=== PATIENT | female | born 1975 | race American Indian/Alaskan Native ===

== ENCOUNTER 2017-03-17 23:42 | Emergency (ER) | payer SELFPAY ==
[2017-03-18 01:02] LABS: Basophils % (Auto) 0.6 % (0.0-1.8); Eosinophils % (Auto) 7.9 % (0.0-4.3); Hematocrit 31.9 % (30.3-42.9); Hemoglobin 10.4 gm/dl (10.1-14.3); Mean Corpuscular HGB Conc 33 % (30-34); Mean Corpuscular Hemoglobin 28 pg (28-32); Mean Corpuscular Volume 87 fl (79-97); Platelet Count 315 K/mm3 (140-440); Red Blood Count 3.68 M/mm3 (3.65-5.03); Red Cell Distribution Width 14.5 % (13.2-15.2); White Blood Count 8.1 K/mm3 (4.5-11.0)
[2017-03-18 01:05] LABS: Alanine Aminotransferase 14 units/L (7-56); Albumin 3.4 g/dL (3.9-5); Albumin/Globulin Ratio 0.8 %; Alkaline Phosphatase 84 units/L (35-129); Anion Gap 16 mmol/L; BUN/Creatinine Ratio 12.72; Blood Urea Nitrogen 14 mg/dL (7-17); Calcium 8.5 mg/dL (8.4-10.2); Carbon Dioxide 26 mmol/L (22-30); Chloride 102.1 mmol/L (98-107); Glucose 81 mg/dL (65-100); Lipase 65 units/L (13-60); Potassium 3.8 mmol/L (3.6-5.0); Sodium 140 mmol/L (137-145); Total Protein 7.6 g/dL (6.3-8.2)
[2017-03-18] MEDS ORDERED: PEPCID PO ONE (04:41)
[2017-03-18] MEDS ORDERED: ZOFRAN ODT PO ONE (04:41)
--- NOTE | 2017-03-18 04:41 | Emergency Department Report ---
Addendum entered and electronically signed by GWENDOLYN TRIVEDI PA 03/18/17 07 :41: Original Note: ED N/V/D HPI - General Chief complaint: Nausea/Vomiting/Diarrhea Stated complaint: VOMITING Time Seen by Provider: 03/18/17 04:40 Source: patient Mode of arrival: Ambulatory Limitations: No Limitations - History of Present Illness Initial comments: 41-year-old female past medical history cervical cancer presents complaining of 3 days of intermittent nausea and vomiting. Patient denies any fevers chills no dysuria and no increased urinary frequency. Patient is awake alert and oriented 3 not in acute distress during my exam. States she has been able to maintain fluids but states that eating solids makes her nauseous. Denies any direct abdominal pain. No recent travel has not eaten anything out of the ordinary. Patient also incidentally states that she has noticed 1 week of left calf swelling. Denies any bloody diarrhea MD complaint: nausea, vomiting Onset/Timin -: days(s) Description of Vomiting: food contents Associated Abdominal Pain: No Improves with: vomiting Worsens with: eating Associated Symptoms: other (left calf swelling) - Related Data Allergies Allergy/AdvReac Type Severity Reaction Status Date / Time No Known Allergies Allergy Verified 03/18/17 00:05 ED Review of Systems ROS: Stated complaint: VOMITING Other details as noted in HPI Constitutional: denies: chills, fever Eyes: denies: eye pain, eye discharge, vision change ENT: denies: ear pain, throat pain Respiratory: denies: cough, shortness of breath, wheezing Cardiovascular: denies: chest pain, palpitations Endocrine: no symptoms reported Gastrointestinal: nausea. denies: abdominal pain, diarrhea Genitourinary: denies: urgency, dysuria, discharge Musculoskeletal: as per HPI (left calf swelling). denies: back pain, joint swelling, arthralgia Skin: denies: rash, lesions Neurological: denies: headache, weakness, paresthesias Psychiatric: denies: anxiety, depression Hematological/Lymphatic: denies: easy bleeding, easy bruising ED Past Medical Hx - Past Medical History Previous Medical History?: Yes Additional medical history: cervical ca - Surgical History Past Surgical History?: Yes Additional Surgical History: cervical - Social History Smoking Status: Never Smoker Substance Use Type: None ED Physical Exam - General Limitations: No Limitations General appearance: alert, in no apparent distress - Head Head exam: Present: atraumatic, normocephalic - Eye Eye exam: Present: normal appearance, PERRL, EOMI - ENT ENT exam: Present: mucous membranes moist - Neck Neck exam: Present: normal inspection - Respiratory Respiratory exam: Present: normal lung sounds bilaterally. Absent: respiratory distress - Cardiovascular Cardiovascular Exam: Present: regular rate, normal rhythm. Absent: systolic murmur, diastolic murmur, rubs, gallop - GI/Abdominal GI/Abdominal exam: Present: soft (abdomen soft nontender nondistended no suprapubic pain negative pain at McBurney's negative iliopsoas negative Rovsing' s negative Rojo sign), normal bowel sounds - Extremities Exam Extremities exam: Present: normal inspection, full ROM - Expanded Lower Extremity Exam Left Lower Leg exam: Present: tenderness, swelling (left calf tenderness and swelling ) - Back Exam Back exam: Present: normal inspection - Neurological Exam Neurological exam: Present: alert, oriented X3 - Psychiatric Psychiatric exam: Present: normal affect, normal mood - Skin Skin exam: Present: warm, dry, intact, normal color. Absent: rash ED Course Vital Signs 03/18/17 00:07 Temperature 98.3 F Pulse Rate 98 H Respiratory 20 Rate Blood Pressure 159/108 [Right] O2 Sat by Pulse 97 Oximetry ED Medical Decision Making - Lab Data Result diagrams: 03/18/17 00:20 03/18/17 00:20 - Medical Decision Making A/P: Nausea and vomiting, left lower extremity swelling 1-abdominal labs unremarkable, pending UA 2-pending lower extremity Doppler 3-patient passing by mouth challenged tolerating food and fluids without difficulty and no longer vomiting 4-I signed out patient to DEE Lancaster to reassess and f/u doppler and UA Critical care attestation.: If time is entered above; I have spent that time in minutes in the direct care of this critically ill patient, excluding procedure time. ED Disposition Condition: Stable Referrals: PRIMARY CARE, [Primary Care Provider] - 3-5 Days
[2017-03-18 05:53] LABS: Bacteria,Urine 1+ /HPF (Negative); Bilirubin,Urine NEG (Negative); Blood,Urine NEG (Negative); Ketones,Urine NEG (Negative); Leukocyte Esterase,Urine NEG (Negative); Mucus,Urine FEW /HPF; Nitrite,Urine NEG (Negative); Protein,Urine <15 mg/dL mg/dL (Negative); Urobilinogen,Urine < 2.0 mg/dL (<2.0)
[2017-03-18 08:13] VITALS: BP 125/87
--- NOTE | 2017-03-18 08:40 | Event Note ---
Date: 03/18/17 Patient is a 41-year-old female that was signed off to me by fellow DEE Bustillo. Patient initially here for nausea and vomiting. CBC BMP, cardiac enzymes, urinalysis ordered All laps findings were normal. Except urinalysis. Urinalysis showed +1 bacteria. Ultrasound Doppler of the lower left extremity was ordered due to the swelling. Doppler ultrasound normal no signs of DVT. Discussed this findings the patient. Patient was discharged home with Bactrim DS and Zofran for nausea. Discussed the patient to follow-up with the primary care physician. Vital signs are normal patient is in no acute distress Patient was alert and oriented 3 she understands instructions are given.
--- NOTE | 2017-03-21 07:29 | Emergency Department Report ---
ED N/V/D HPI - General Chief complaint: Nausea/Vomiting/Diarrhea Stated complaint: VOMITING Time Seen by Provider: 03/18/17 04:40 Source: patient Mode of arrival: Ambulatory Limitations: No Limitations - History of Present Illness Initial comments: MY Original note was deleted from [facility] 41-year-old female past medical history cervical cancer presents with complaint of 3-4 days of intermittent nausea and vomiting. Patient denies any abdominal pain denies any diarrhea, fevers, chills, dysuria denies eating or drinking anything out of the ordinary for the last week. Denies any travel outside of the country. Denies any sick contacts at home. Possible slight increased urinary frequency as per patient. Patient is awake alert and oriented 3 not in acute distress states that she last vomited last night. Patient is able to drink water without throwing this up. On exam patient is calm lying down comfortably on bed. Denies any alcohol or drug use. Also incidentally states that she has noticed left calf swelling for 1 week. Denies any direct trauma to the leg or falls. MD complaint: nausea Onset/Timin -: days(s) Description of Vomiting: food contents, watery Associated Abdominal Pain: No Consistency: intermittent Associated Symptoms: denies other symptoms - Related Data Previous Rx's Medication Instructions Recorded Last Taken Type Hydrocortisone 0.5% (Nf) 1 applicatio TP TID #1 tube 03/18/17 Unknown Rx [Hydrocortisone 0.5% OINT] Ondansetron [Zofran Odt] 4 mg PO Q8H #30 tab.rapdis 03/18/17 Unknown Rx Sulfamethoxazole/Trimethoprim 1 tab PO BID #14 tab 03/18/17 Unknown Rx [Bactrim 400-80 mg] Allergies Allergy/AdvReac Type Severity Reaction Status Date / Time No Known Allergies Allergy Verified 03/18/17 00:05 ED Review of Systems ROS: Stated complaint: VOMITING Other details as noted in HPI Constitutional: denies: chills, fever Eyes: denies: eye pain, eye discharge, vision change ENT: denies: ear pain, throat pain Respiratory: denies: cough, shortness of breath, wheezing Cardiovascular: denies: chest pain, palpitations Endocrine: no symptoms reported Gastrointestinal: denies: abdominal pain, nausea, diarrhea Genitourinary: denies: urgency, dysuria, discharge Musculoskeletal: denies: back pain, joint swelling, arthralgia Skin: denies: rash, lesions Neurological: denies: headache, weakness, paresthesias Psychiatric: denies: anxiety, depression Hematological/Lymphatic: denies: easy bleeding, easy bruising ED Past Medical Hx - Past Medical History Previous Medical History?: Yes Additional medical history: cervical ca - Surgical History Past Surgical History?: Yes Additional Surgical History: cervical - Social History Smoking Status: Never Smoker Substance Use Type: None - Medications Home Medications: Home Medications Medication Instructions Recorded Confirmed Last Taken Type Hydrocortisone 0.5% (Nf) 1 applicatio TP TID #1 tube 03/18/17 Unknown Rx [Hydrocortisone 0.5% OINT] Ondansetron [Zofran Odt] 4 mg PO Q8H #30 tab.rapdis 03/18/17 Unknown Rx Sulfamethoxazole/Trimethoprim 1 tab PO BID #14 tab 03/18/17 Unknown Rx [Bactrim 400-80 mg] ED Physical Exam - General Limitations: No Limitations General appearance: alert, in no apparent distress - Head Head exam: Present: atraumatic, normocephalic - Eye Eye exam: Present: normal appearance, PERRL, EOMI - ENT ENT exam: Present: mucous membranes moist - Neck Neck exam: Present: normal inspection - Respiratory Respiratory exam: Present: normal lung sounds bilaterally. Absent: respiratory distress - Cardiovascular Cardiovascular Exam: Present: regular rate, normal rhythm. Absent: systolic murmur, diastolic murmur, rubs, gallop - GI/Abdominal GI/Abdominal exam: Present: soft (abdomen soft nontender nondistended bowel sounds all 4 quadrants no tenderness at McBurney's point negative Rojo sign no iliopsoas or Rovsing sign on clinical exam patient has no CVA or flank tenderness on exam), normal bowel sounds - Extremities Exam Extremities exam: Present: normal inspection - Back Exam Back exam: Present: normal inspection - Neurological Exam Neurological exam: Present: alert, oriented X3, CN II-XII intact, normal gait - Psychiatric Psychiatric exam: Present: normal affect, normal mood - Skin Skin exam: Present: warm, dry, intact, normal color. Absent: rash ED Course Vital Signs 03/18/17 03/18/17 00:07 08:12 Temperature 98.3 F Pulse Rate 98 H 87 Respiratory 20 20 Rate Blood Pressure 159/108 125/87 [Right] O2 Sat by Pulse 97 99 Oximetry ED Medical Decision Making - Lab Data Result diagrams: 03/18/17 00:20 03/18/17 00:20 - Medical Decision Making A/P: nausea/vomiting, possible gastroeneteritis, left LE swelling 1- EKG, blood work, troponin, amylase, lipase, hepatic panel, CBC, BMP unremarkable 2- patient is now tolerating by mouth fluid and food with no difficulty or nausea after 1 dose of by mouth Zofran. Has not vomited in the last 6 hours nor has nausea sensation 3- lower extremity Doppler ordered to rule out DVT. Patient has moderate risk due to history of cervical cancer. 4- pending urinalysis, lab has been received but yet to be resulted by Laboratory' 5- pt signed out to DEE [place] to f/u results of UA and duplex and to continue PO challenge Critical care attestation.: If time is entered above; I have spent that time in minutes in the direct care of this critically ill patient, excluding procedure time. ED Disposition Clinical Impression: Nausea UTI (urinary tract infection) Qualifiers: Urinary tract infection type: acute cystitis Hematuria presence: without hematuria Qualified Code(s): N30.00 - Acute cystitis without hematuria Disposition: - TO HOME OR SELFCARE Is pt being admited?: No Does the pt Need Aspirin: No Condition: Stable Instructions: Urinary Tract Infection in Women (ED), Acute Nausea and Vomiting (ED) Additional Instructions: Follow-up to primary care physician. Take your medication as prescribed. Prescriptions: Hydrocortisone 0.5% (Nf) [Hydrocortisone 0.5% OINT] 1 applicatio TP TID #1 tube Ondansetron [Zofran Odt] 4 mg PO Q8H #30 tab.rapdis Sulfamethoxazole/Trimethoprim [Bactrim 400-80 mg] 1 tab PO BID #14 tab Referrals: [facility] [Outside] - 3-5 Days [facility] [Outside] - 3-5 Days [facility] [Outside] - 3-5 Days [facility] [Outside] - 3-5 Days PRIMARY CARE, [Primary Care Provider] - 3-5 Days ANDRA CHUN MD [Referring] - 3-5 Days Forms: Work/School Release Form(ED)
== END 2017-03-18 09:20 | disposition home or self-care (01) ==
LOC: ED 23:42
DX: R11.2 Nausea with vomiting, unspecified (principal); N30.00 Acute cystitis without hematuria; Z85.41 Personal history of malignant neoplasm of cervix uteri; Z98.890 Other specified postprocedural states
CPT/HCPCS: 36415; 80053; 81001; 81025; 83690; 84484; 84703; 85025; 93005; 93010; Q0162